=== PATIENT | female | born 1935 | race Caucasian/White ===

== ENCOUNTER → 2018-02-07 | Outpatient (CLI) | payer OTHER | LOC: RAD 09:31 | DX: M47.896 Other spondylosis, lumbar region (principal); M41.86 Other forms of scoliosis, lumbar region; I70.0 Atherosclerosis of aorta ==

== ENCOUNTER → 2018-08-26 | Outpatient (CLI) | payer OTHER | LOC: ULTRA 08:55 | DX: I65.23 Occlusion and stenosis of bilateral carotid arteries (principal); G31.9 Degenerative disease of nervous system, unspecified; I10 Essential (primary) hypertension ==

== ENCOUNTER → 2020-05-31 | Outpatient (CLI) | payer OTHER | LOC: LAB 08:53 | PROVIDERS: ATTEND Family Medicine | DX: Z20.828 Contact with and (suspected) exposure to other viral communicable diseases (principal) ==